=== PATIENT | female | born 1950 | race Caucasian/White ===

== ENCOUNTER → 2016-08-22 | Outpatient (CLI) | payer MEDICARE, OTHER | LOC: WI 09:10 | PROVIDERS: ATTEND Physician Assistant | DX: Z12.31 Encounter for screening mammogram for malignant neoplasm of breast (principal); M81.0 Age-related osteoporosis without current pathological fracture | CPT/HCPCS: 77080; G0202; 77067 ==

== ENCOUNTER → 2018-11-28 | Outpatient (CLI) | payer MEDICARE, OTHER ==
--- NOTE | 2018-11-28 14:30 | RADIOLOGY REPORT (SQ) ---
EXAM DESCRIPTION: ANKLE BILATERAL 3 VIEWS MIN COMPLETED DATE/TIME: 11/28/2018 1:56 pm REASON FOR STUDY: FREIDA KNEE PAIN; FREIDA PAIN ANKLE AND JOINTS OF RT/LT FOOT M25.561 PAIN IN RIGHT KNEE M25.562 PAIN IN LEFT KNEE M25.571 PAIN IN RIGHT ANKLE AND JOINTS OF RIGHT FOOT COMPARISON: None. NUMBER OF VIEWS: Six views. TECHNIQUE: AP, lateral, and oblique without weight bearing radiographic images acquired of the right and left ankle. LIMITATIONS: None. FINDINGS: MINERALIZATION: Normal. BONES: No acute fracture or dislocation. No worrisome bone lesions. No significant osteophytes. JOINTS: No effusions. SOFT TISSUES: No soft tissue swelling. No foreign body. OTHER: No other significant finding. IMPRESSION: NEGATIVE STUDY OF THE RIGHT AND LEFT ANKLES. NO EXPLANATION FOR PAIN. TECHNICAL DOCUMENTATION: JOB ID: [id number] [email or web address]- All Rights Reserved Reading location - IP/workstation name: [email or web address]
--- NOTE | 2018-11-28 14:42 | RADIOLOGY REPORT (SQ) ---
EXAM DESCRIPTION: KNEE LEFT 4 VIEWS COMPLETED DATE/TIME: 11/28/2018 1:56 pm REASON FOR STUDY: FREIDA KNEE PAIN; FREIDA PAIN ANKLE AND JOINTS OF RT/LT FOOT M25.561 PAIN IN RIGHT KNEE M25.562 PAIN IN LEFT KNEE M25.571 PAIN IN RIGHT ANKLE AND JOINTS OF RIGHT FOOT COMPARISON: None. NUMBER OF VIEWS: Four views. TECHNIQUE: AP, lateral, and both oblique radiographic images acquired of the left knee. LIMITATIONS: None. FINDINGS: MINERALIZATION: Normal. BONES: No acute fracture or dislocation. No worrisome bone lesions. JOINT: Joint space narrowing and osteophyte formation patellofemoral and medial compartments. No cho ndrocalcinosis. SOFT TISSUES: No soft tissue swelling. No radio-opaque foreign body. OTHER: No other significant finding. IMPRESSION: Osteoarthritis. TECHNICAL DOCUMENTATION: JOB ID: [id number] [employer]- All Rights Reserved Reading location - IP/workstation name: [email or web address]
--- NOTE | 2018-11-28 14:43 | RADIOLOGY REPORT (SQ) ---
EXAM DESCRIPTION: KNEE RIGHT 4 VIEWS COMPLETED DATE/TIME: 11/28/2018 1:42 pm REASON FOR STUDY: FREIDA KNEE PAIN; FREIDA PAIN ANKLE AND JOINTS OF RT/LT FOOT M25.561 PAIN IN RIGHT KNEE M25.562 PAIN IN LEFT KNEE M25.571 PAIN IN RIGHT ANKLE AND JOINTS OF RIGHT FOOT COMPARISON: None. NUMBER OF VIEWS: Four views. TECHNIQUE: AP, lateral, and both oblique radiographic images acquired of the right knee. LIMITATIONS: None. FINDINGS: MINERALIZATION: Normal. BONES: No acute fracture or dislocation. No worrisome bone lesions. JOINT: Joint space narrowing and osteophyte formation medial and patellofemoral compartments. No cho ndrocalcinosis. No effusion. SOFT TISSUES: No soft tissue swelling. No radio-opaque foreign body. OTHER: No other significant finding. IMPRESSION: Osteoarthritis. TECHNICAL DOCUMENTATION: JOB ID: [id number] [employer]- All Rights Reserved Reading location - IP/workstation name: [email or web address]
== END ==
LOC: OD 13:21
PROVIDERS: ATTEND Physician Assistant
DX: M25.561 Pain in right knee (principal); M25.562 Pain in left knee; M25.571 Pain in right ankle and joints of right foot; M25.572 Pain in left ankle and joints of left foot; M17.0 Bilateral primary osteoarthritis of knee

== ENCOUNTER → 2019-11-28 | Outpatient (CLI) | payer MEDICARE, OTHER ==
--- NOTE | 2019-11-28 13:46 | WOMENS IMAGING REPORT ---
EXAM DESCRIPTION: BONE DENSITY HIP/SPINE IMAGES COMPLETED DATE/TIME: 11/28/2019 1:33 pm REASON FOR STUDY: Z12.31 ENCOUNTER FOR SCREENING MAMMOGRAM FOR MALIGNANT NEOPLASM OF BREAST Z87.891 PERSONAL HISTORY OF NICOTINE DEPENDENCE Z72.0 TOBACCO USE Z12.2 ENCNTR SCREEN FOR MALIGNANT NEOPLA SM OF RESPIRATORY OR COMPARISON: 08/22/2016 TECHNIQUE: Dual-Energy X-ray Absorptiometry (DEXA) of the AP Spine and Hip. LIMITATIONS: None. FINDINGS: LUMBAR SPINE: The bone mineral density (BMD) measured from L1-L4 in the AP projection correlates with a T-score of -0.8, which is normal as defined by the World Health Organization. There has been a positive 6.9% change since baseline. HIP: The bone mineral density (BMD) measured in the left hip correlates with a T-score of -1.3, which is o steopenia as defined by the World Health Organization. There has been a positive 2.4% chain since baseline. IMPRESSION: 1. LUMBAR SPINE: NORMAL. 2. HIP: OSTEOPENIA. COMMENT: The World Health Organization defines low BMD as follows: T-score: Normal: Greater than -1.0 Osteopenia: Between -1.0 and -2.5 Osteoporosis: Less than -2.5 without fractures Established osteoporosis: Less than -2.5 with fractures In general, you may wish to consider: Diagnosis Treatment Follow-up DEXA Normal BMD Prevention 2-3 years Osteopenia Prevention/Therapy 1-2 years Osteoporosis Therapy Yearly TECHNICAL DOCUMENTATION: JOB ID: [id number] 2010 [employer]- All Rights Reserved Reading location - IP/workstation name: [email or web address]
--- NOTE | 2019-12-02 09:27 | WOMENS IMAGING REPORT ---
EXAM DESCRIPTION: 3D SCREENING MAMMO BILAT IMAGES COMPLETED DATE/TIME: 11/28/2019 1:33 pm REASON FOR STUDY: Z12.31 ENCOUNTER FOR SCREENING MAMMOGRAM FOR MALIGNANT NEOPLASM OF BREAST Z87.891 PERSONAL HISTORY OF NICOTINE DEPENDENCE Z72.0 TOBACCO USE Z12.2 ENCNTR SCREEN FOR MALIGNANT NEOPLA SM OF RESPIRATORY OR COMPARISON: Multiple since 2009 EXAM PARAMETERS: Views: Standard craniocaudal and mediolateral oblique views of each breast recorded using digital acquisition and breast tomosynthesis. Read with the assistance of CAD. .[facility] - [employer] Version 9.2 LIMITATIONS: None. FINDINGS: No suspicious masses, suspicious calcifications or architectural distortion. No areas of c oncern. IMPRESSION: NEGATIVE MAMMOGRAM. BIRADS 1. BREAST DENSITY: b. There are scattered areas of fibroglandular density. BIRAD: ASSESSMENT: 1 NEGATIVE RECOMMENDATION: ROUTINE SCREENING COMMENT: The patient has been notified of the results by letter per MQSA requirements. Additional no tification policies are in place for contacting patient with suspicious or incomplete findings. Quality ID #[id number]: The [employer] recommends an annual screening mammogram for women aged 40 years or over. This facility utilizes a reminder system to ensure that all patients receive reminder letters, and/or direct phone calls for appointments. This includes reminders for routine scr eening mammograms, diagnostic mammograms, or other Breast Imaging Interventions when appropriate. Th is patient will be placed in the appropriate reminder system. TECHNICAL DOCUMENTATION: FINDING NUMBER: (1) ASSESSMENT: (1) JOB ID: [id number] 2010 [employer]- All Rights Reserved Reading location - IP/workstation name: [email or web address]
== END ==
LOC: WI 12:50
PROVIDERS: ATTEND Physician Assistant
DX: Z12.31 Encounter for screening mammogram for malignant neoplasm of breast (principal); M81.0 Age-related osteoporosis without current pathological fracture
CPT/HCPCS: 77063; 77067; 77080

== ENCOUNTER → 2019-12-04 | Outpatient (CLI) | payer MEDICARE, OTHER ==
--- NOTE | 2019-12-04 14:21 | RADIOLOGY REPORT (SQ) ---
EXAM DESCRIPTION: CT LUNG CANCER SCREENING IMAGES COMPLETED DATE/TIME: 12/04/2019 1:42 pm REASON FOR STUDY: Z12.2 ENCNTR SCREEN FOR MALIGNANT NEOPLASM OF RESPIRATORY ORGANS, Z72.0 Z12.2 ENC NTR SCREEN FOR MALIGNANT NEOPLASM OF RESPIRATORY OR Z72.0 TOBACCO USE Z87.891 PERSONAL HISTORY OF N ICOTINE DEPENDENCE Has the patient had a Chest CT scan within the past year? N Was the patient offered tobacco cessation counseling? Y Was the patient engaged in shared decision making for this test? Y Does the patient have signs or symptoms of Lung Cancer? N Is the patient a smoker? Y How many pack years? 50 How many years since quitting smoking? 0 Patients age: 69 COMPARISON: None. TECHNIQUE: Low Dose CT scan performed of the chest without intravenous contrast for purposes of scre ening for lung cancer. Images reviewed with lung, soft tissue and bone windows. Reconstructed coron al and sagittal MPR images reviewed. All images stored on PACS. All CT scanners at this facility use dose modulation, iterative reconstruction, and/or weight based d osing when appropriate to reduce radiation dose to as low as reasonably achievable (ALARA). [facility]: Dose Right [facility]: CareDose [facility]: Dose Right [facility]: Teradose 4D [facility]: Smart GC[employer] RADIATION DOSE: CT Rad equipment meets quality standard of care and radiation dose reduction techniq ues were employed. CTDIvol: NaN mGy. DLP: 0 mGy-cm. mGy. . LIMITATIONS: None FINDINGS: LUNGS AND PLEURA: No masses or nodules. No pleural effusions or calcifications. No pne umothorax. No scarring or interstitial changes. HILAR AND MEDIASTINAL STRUCTURES: No identified masses. No abnormal nodes. HEART AND VASCULAR STRUCTURES: No aortic aneurysm. No pericardial effusion. No cardiac devices. CORONARY ARTERY CALCIFICATIONS: Mild to moderate calcifications. UPPER ABDOMEN, THYROID, BONES, OTHER SOFT TISSUES: No significant findings. IMPRESSION: NO SIGNIFICANT FINDING IN THE LUNGS ON NON-CONTRASTED CHEST CT. NO OTHER CLINICALLY SIGNIFICANT/POTENTIALLY CLINICALLY SIGNIFICANT FINDINGS LUNGRADS: LUNGRADS: 1 NEGATIVE. NO NODULES, OR DEFINITELY BENIGN NODULES MODIFIER: NONE RECOMMENDATION: Continue annual screening with LDCT in 12 months. COMMENT: CRITERIA: No lung nodules. Nodules with specific calcifications: Complete, central, popcorn, concentric rings and fat containin g nodules. TECHNICAL DOCUMENTATION: JOB ID: [id number] Quality ID # [id number]: Final reports with documentation of one or more dose reduction techniques (e.g., Au tomated exposure control, adjustment of the mA and/or kV according to patient size, use of iterative reconstruction technique) 2010 [facility] Reading location - IP/workstation name: [email or web address]
== END ==
LOC: RAD 13:13
PROVIDERS: ATTEND Physician Assistant
DX: Z12.2 Encounter for screening for malignant neoplasm of respiratory organs (principal); Z87.891 Personal history of nicotine dependence; I25.10 Atherosclerotic heart disease of native coronary artery without angina pectoris
CPT/HCPCS: G0297

== ENCOUNTER → 2020-03-26 | Outpatient (CLI) | payer MEDICARE, OTHER ==
--- NOTE | 2020-03-26 15:29 | RADIOLOGY REPORT (SQ) ---
EXAM DESCRIPTION: FOOT RIGHT COMPLETE IMAGES COMPLETED DATE/TIME: 03/26/2020 1:47 pm REASON FOR STUDY: RT FOOT INFECTION; RT FOOT PAIN L08.9 LOCAL INFECTION OF THE SKIN AND SUBCUTANEOU S TISSUE, U M79.671 PAIN IN RIGHT FOOT COMPARISON: None. NUMBER OF VIEWS: Three views. TECHNIQUE: AP, lateral and oblique radiographic images acquired of the right foot. LIMITATIONS: None. FINDINGS: MINERALIZATION: Normal. BONES: No acute fracture or dislocation. No worrisome bone lesions. JOINTS: Degenerative joint changes is seen in the 1st tarsal metatarsal joint. SOFT TISSUES: No soft tissue swelling. No foreign body. OTHER: No other significant finding. IMPRESSION: No evidence of osteomyelitis. Degenerative joint disease. TECHNICAL DOCUMENTATION: JOB ID: [id number] 2010 [employer]- All Rights Reserved Reading location - IP/workstation name: [email or web address]
== END ==
LOC: RAD 13:30
PROVIDERS: ATTEND Physician Assistant
DX: M19.071 Primary osteoarthritis, right ankle and foot (principal); M79.671 Pain in right foot; L08.9 Local infection of the skin and subcutaneous tissue, unspecified